=== PATIENT | male | born 1985 | race Two or more races ===

== ENCOUNTER 2022-02-16 21:40 | Emergency (ER) | payer SELFPAY ==
[~2022-02-16] VITALS: Ht 177.8 cm; Wt 139.6 kg
[2022-02-16] MEDS ORDERED: LISI10TA22 PO (21:54)
[2022-02-16] MEDS ORDERED: IBUP1TAB7 PO (21:56)
[2022-02-17 01:13] LABS: BASO # 0.1 10^3/uL (0.0-0.2); BASO % 0.4 % (0.0-1.0); EOS # 0.1 10^3/uL (0.0-0.5); EOS % 0.4 % (0.0-3.0); HEMATOCRIT 46.1 % (42.0-52.0); HEMOGLOBIN 15.6 g/dl (13.5-17.5); LYMPH # 1.8 10^3/uL (1.5-5.0); LYMPH % 13.5 % (24.0-44.0); MEAN CORPUSCULAR HEMOGLOBIN 32.2 pg (27.0-33.0); MEAN CORPUSCULAR HGB CONC 33.8 g/dl (32.0-36.5); MEAN CORPUSCULAR VOLUME 95.1 fl (80.0-96.0); MONO # 0.9 10^3/uL (0.0-0.8); MONO % 6.7 % (2.0-8.0); NEUTROPHILS # 10.4 10^3/uL (1.5-8.5); NEUTROPHILS % 78.3 % (36.0-66.0); PLATELET COUNT, AUTOMATED 165 10^3/uL (150-450); RED BLOOD COUNT 4.85 10^6/uL (4.30-6.10); WHITE BLOOD COUNT 13.3 10^3/uL (4.0-10.0)
[2022-02-17 01:24] LABS: INR 0.85
[2022-02-17 01:43] LABS: ALBUMIN 4.3 GM/DL (3.2-5.2); ALT/SGPT 30 U/L (12-78); BILIRUBIN,DIRECT 0.1 MG/DL (0.0-0.2); BILIRUBIN,TOTAL 0.2 MG/DL (0.2-1.0); BLOOD UREA NITROGEN 18 MG/DL (7-18); CALCIUM LEVEL 9.3 MG/DL (8.5-10.1); CARBON DIOXIDE LEVEL 25 MEQ/L (21-32); CHLORIDE LEVEL 109 MEQ/L (98-107); CREATININE FOR GFR 0.88 MG/DL (0.70-1.30); GLOMERULAR FILTRATION RATE > 60.0 (>60); GLUCOSE, FASTING 117 MG/DL (70-100); LIPASE 82 U/L (73-393); NT-PRO BNP 13 PG/ML (<125); SODIUM LEVEL 140 MEQ/L (136-145)
[2022-02-17 01:51] LABS: CK-MB VALUE MASS < 1.0 NG/ML (<3.6); CPK CREATINE PHOSPHOKINASE 242 U/L (39-308); MB/CK RELATIVE INDEX 0.41 (< OR =4)
[2022-02-17 01:54] VITALS: BP 151/84
== END 2022-02-17 02:16 | disposition left against medical advice (07) ==
LOC: M ED 21:40
DX: Z53.21 Procedure and treatment not carried out due to patient leaving prior to being seen by health care provider (principal)

== ENCOUNTER → 2023-01-03 | Outpatient (CLI) | payer BC, OTHER ==
[~2023-01-03] MED LIST: IBUP1TAB7 PO; LISI10TA22 PO
== END ==
LOC: M WUC 13:56
PROVIDERS: ATTEND Physician Assistant
DX: S40.011A Contusion of right shoulder, initial encounter (principal); V20.49XA Other motorcycle driver injured in collision with pedestrian or animal in traffic accident, initial encounter